=== PATIENT | female | born 1960 | race Caucasian/White ===

== ENCOUNTER → 2017-01-13 16:35 | Outpatient (CLI) | payer MEDICAID ==
[2016-02-01 16:10] VITALS: BMI 36.7
[~2017-01-13 16:35] MED LIST: BAYER CHEWABLE81 MG PO; COLACE100 MG PO; DOXYCYCLINE HY100 M2 PO; IBUPROFEN800 MG PO; LEVOXYL25 MCG PO; METAMUCIL FIB1 WAFER PO; PLAVIX75 MG PO; PROTONIX40 MG PO; ULTRAM50 MG PO
== END | disposition home or self-care (01) ==
LOC: D.MAMMO 12-25 15:45
DX: Z12.31 Encounter for screening mammogram for malignant neoplasm of breast (principal)

== ENCOUNTER → 2017-02-24 18:13 | Outpatient (CLI) | payer MEDICAID ==
[2016-02-01 16:10] VITALS: BMI 36.7
== END | disposition home or self-care (01) ==
LOC: D.MAMMO 13:00
DX: R92.8 Other abnormal and inconclusive findings on diagnostic imaging of breast (principal)

== ENCOUNTER → 2017-03-09 16:21 | Outpatient (CLI) | payer MEDICAID ==
[2016-02-01 16:10] VITALS: BMI 36.7
== END | disposition home or self-care (01) ==
LOC: D.US 16:21
DX: I65.23 Occlusion and stenosis of bilateral carotid arteries (principal)

== ENCOUNTER → 2017-08-11 11:24 | Outpatient (CLI) | payer MEDICAID ==
[2016-02-01 16:10] VITALS: BMI 36.7
== END | disposition home or self-care (01) ==
LOC: D.NM 08-10 11:30
DX: R11.2 Nausea with vomiting, unspecified (principal); R10.9 Unspecified abdominal pain

== ENCOUNTER → 2017-10-19 08:53 | Outpatient (CLI) | payer MEDICAID ==
[2016-02-01 16:10] VITALS: BMI 36.7
[2017-10-19 10:08] LABS: ALBUMIN 3.6 g/dL (3.4-5.0); BILIRUBIN - DIRECT 0.09 mg/dL (0.00-0.30); BILIRUBIN - INDIRECT 0.41 mg/dL (0.00-1.00); BILIRUBIN - TOTAL 0.5 mg/dL (0.2-1.3); PROTEIN - SERUM 7.7 g/dL (6.4-8.2)
== END | disposition home or self-care (01) ==
LOC: D.LAB 10-08 08:45 → D.US 10-08 09:00 → D.NM 10-08 09:30 → D.LAB 08:45
PROVIDERS: Internal Medicine Gastroenterology
DX: R10.9 Unspecified abdominal pain (principal); R11.2 Nausea with vomiting, unspecified

== ENCOUNTER 2018-03-24 07:11 | Day surgery (SDC) | payer MEDICAID ==
[2018-03-23 16:16] LABS: HEMATOCRIT 42.6 % (36.0-48.0); HEMOGLOBIN 13.9 g/dL (12-16); MCH 28.4 pg (26.0-34.0); MCHC 32.6 g/dL (31.0-37.0); MCV 87.1 fL (80.0-100.0); MEAN PLATELET VOLUME 9.1 fL (7.4-10.4); RBC 4.89 10x6/uL (4.00-5.40); RDW 14.1 % (11.5-14.5); WBC 9.1 10x3/uL (4.8-10.8)
[2018-03-23 16:38] LABS: CALC OSMOLALITY 279 mosm/kg (275-300); CALCIUM 8.8 mg/dL (8.5-10.1); CARBON DIOXIDE 27.2 mmol/L (21.0-32.0); CHLORIDE - SERUM 104 mmol/L (98-107); CREATININE - SERUM 0.8 mg/dL (0.6-1.3); GLUCOSE 80 mg/dL (74-106); POTASSIUM - SERUM 3.8 mmol/L (3.5-5.1); SODIUM 140 mmol/L (136-145); UREA NITROGEN 18 mg/dL (7-18); eGFR NON AFRICAN AMERICAN 78 mL/min (90-120)
[~2018-03-24] VITALS: Ht 172.7 cm; Wt 75.8 kg
[2018-03-24 06:57] VITALS: Ht 172.7 cm; Wt 75.8 kg
[~2018-03-24 07:11] MED LIST changes: +OMEPRAZOLE40 MG PO
[2018-03-24] MEDS ORDERED: HYDROCODON-ACE1 EAC7 PO (09:06)
== END 2018-03-24 14:20 | disposition home or self-care (01) ==
LOC: D.OPS 07:11 → D.PAN 08:00 → D.OPS 14:20
PROVIDERS: Anesthesiology
DX: K81.1 Chronic cholecystitis (principal); F17.200 Nicotine dependence, unspecified, uncomplicated; K31.84 Gastroparesis; Z01.812 Encounter for preprocedural laboratory examination; K82.8 Other specified diseases of gallbladder

== ENCOUNTER → 2018-05-17 13:10 | Outpatient (CLI) | payer MEDICAID ==
[2018-03-24 06:57] VITALS: BMI 25.4
[~2018-05-17 13:10] MED LIST changes: +HYDROCODON-ACE1 EAC7 PO
== END | disposition home or self-care (01) ==
LOC: D.US 13:00
DX: I65.23 Occlusion and stenosis of bilateral carotid arteries (principal)